=== PATIENT | male | born 1970 | race Two or more races ===

== ENCOUNTER 2024-08-02 09:14 | Outpatient (AMB) | payer MEDICAID, SELFPAY ==
[2024-08-02 09:58] VITALS: BP 151/89; PULSE 64; RESP 17; TEMP 36.4; O2SAT 96; BMI 31.0
--- NOTE | 2024-08-02 09:58 | PD.ORTHCLVIS ---
Vital signs 08/02/24 09:58 Height 1.7 m Height Method Stated Weight 89.84 kg Weight Measurement Method Standing Scale BMI 31.0 BP 151/89 H Blood Pressure Source Automatic Cuff Blood Pressure Location Left Upper Arm Position Sitting Respiration 17 Pulse 64 Pulse Source Monitor Temp 97.6 F Temp Source Temporal Artery Scan Pulse Oximetry (%) 96 Oxygen Delivery Method Room Air Med/Allergies Allergies & Medications Allergies No Known Drug Allergies Allergy (Verified 08/02/24 10:02) Medication Reconciliation omeprazole 10 mg capsule,delayed release 10 mg PO QDAY 08/02/24 [History Confirmed 08/02/24] Subjective Visit Visit for: new patient and knee Immunization / Flu Flu Vaccine in the Last 12 Months: No Flu Vaccine Exclusion Criteria: No Exclusion Criteria History of Present Illness Chief complaint: BILATERAL KNEE PAIN FOR 20 YEARS Date of injury / onset of symptoms: 20 YEARS Patient is a 53-year-old male with bilateral knee pain and bilateral knee arthritis. The left is worse than the right. He reports that his knee has been curving inward. The pains been ongoing for over 10 years. He is tried multiple injections, anti-inflammatories, and formal physical therapy. He reports that the pain was too bad with therapy and he had to stop it soon after. 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 Exam Exam Patient is in no acute distress and is cooperative with the examination today. Breathing is nonlabored. In no respiratory distress. Bilateral extremities were evaluated and demonstrates sensation intact to light touch. Palpable pedal pulses are present. No significant edema is present. Bilateral hips were examined. The patient has no pain with log roll of the hips. Internal rotation to 30 degrees and external rotation to 30 degrees is painless. Negative FADIR. The left knee was examined. The left knee is in [varus] alignment. Range of motion from [0-115] degrees. Knee is stable to varus and valgus as well as AP translation with <5mm. Patient has a [negative] McMurrays. There is [no] pain with patellofemoral compression and [no] crepitus noted. The knee is [tender] to palpation [medially]. The right knee was also examined. The right knee is in [varus] alignment. Range of motion from [0-120] degrees. Knee is stable to varus and valgus as well as AP translation with <5mm. Patient has a [negative] McMurrays. There is [no] pain with patellofemoral compression and [no] crepitus noted. The knee is [tender] to palpation [medially]. Nonweightbearing x-rays demonstrates medial and lateral joint space narrowing and osteophytes. These are nonweightbearing films Assessment and Plan Problem List (1) Degenerative arthritis of knee, bilateral: Status: Acute Plan: Patient is a 53-year-old male with bilateral knee pain and bilateral knee arthritis. He is failed conservative treatment. We will get new x-rays. His last films were nonweightbearing he would benefit from weightbearing films. He has significant varus deformity on exam and I think that he will likely have [id number] arthritis. We discussed different treatment options depending on the severity of the arthritis on x-ray Office Procedures GNS Level of Care Nursing/Assessment Patient Status: Established Patient Nursing Assessment/Reassesment: Medication Reconciliation, Update PMH in EMR and Vital Signs Coordination of Care: Complex Care and Chronic Disease 1-5, Education Complex Pt/Fam, Consent,records obtained, informed consent, 1 Ins Authorization, Lab and Imaging orders, Results/Orders obtained and Staff clarify orders Special Needs: Language special needs Established Patient Charge Established Patient Point Assignment: 125 Established Patient Point Charge: EP Level 4 (120-155) Past Medical History Past Medical History Have you ever been diagnosed with any of the following: Respiratory Problems Smoking: No Smoking Exposure: No
== END 2024-08-02 10:15 | disposition home or self-care (01) ==
LOC: HODSRG 09:14
PROVIDERS: PCP Physician Assistant; Referring Provider Physician Assistant; Supervising Provider Orthopaedic Surgery Adult Reconstructive Orthopaedic Surgery; Visit Provider Orthopaedic Surgery Adult Reconstructive Orthopaedic Surgery
DX: M17.0 Bilateral primary osteoarthritis of knee (principal); M25.562 Pain in left knee; M25.561 Pain in right knee
CPT/HCPCS: 99214; G0463

== ENCOUNTER 2024-10-18 09:03 | Outpatient (AMB) | payer MEDICAID, SELFPAY ==
[2024-10-18 09:20] VITALS: BP 162/85; PULSE 71; RESP 19; TEMP 36.6; O2SAT 95; BMI 31.2
--- NOTE | 2024-10-18 09:20 | PD.ORTHCLVIS ---
Vital signs 10/18/24 09:20 Height 1.7 m Height Method Stated Weight 90.322 kg Weight Measurement Method Standing Scale BMI 31.2 BP 162/85 H Blood Pressure Source Automatic Cuff Blood Pressure Location Right Upper Arm Position Sitting Respiration 19 Pulse 71 Pulse Source Monitor Temp 97.8 F Temp Source Temporal Artery Scan Pulse Oximetry (%) 95 Oxygen Delivery Method Room Air Med/Allergies Allergies & Medications Allergies No Known Drug Allergies Allergy (Verified 10/18/24 09:21) Medication Reconciliation omeprazole 10 mg capsule,delayed release 10 mg PO QDAY 08/02/24 [History Confirmed 10/18/24] Exam Exam Patient is in no acute distress and is cooperative with the examination today. Breathing is nonlabored. In no respiratory distress. Bilateral extremities were evaluated and demonstrates sensation intact to light touch. Palpable pedal pulses are present. No significant edema is present. Bilateral hips were examined. The patient has no pain with log roll of the hips. Internal rotation to 30 degrees and external rotation to 30 degrees is painless. Negative FADIR. The left knee was examined. The left knee is in [varus] alignment. Range of motion from [0-115] degrees. Knee is stable to varus and valgus as well as AP translation with <5mm. Patient has a [negative] McMurrays. There is [no] pain with patellofemoral compression and [no] crepitus noted. The knee is [tender] to palpation [medially]. The right knee was also examined. The right knee is in [varus] alignment. Range of motion from [0-120] degrees. Knee is stable to varus and valgus as well as AP translation with <5mm. Patient has a [negative] McMurrays. There is [no] pain with patellofemoral compression and [no] crepitus noted. The knee is [tender] to palpation [medially]. weightbearing x-rays demonstrates medial and lateral joint space narrowing and osteophytes. Assessment and Plan Problem List (1) Degenerative arthritis of knee, bilateral: Status: Acute Plan: Patient is a 53-year-old male with bilateral knee pain and bilateral knee arthritis. He is failed conservative treatment. We will get new x-rays. His last films were nonweightbearing he would benefit from weightbearing films. He has significant varus deformity on exam and I think that he will likely have [id number] arthritis. We discussed different treatment options. He would like to try a repeat cortisone injection today. Recommend knee cortisone injections as patient would like to proceed with conservative treatment at this time. The risks and benefits of the procedure were reviewed with the patient and patient gave verbal consent to continue with the procedure. Procedure: performed by Dr. Murillo Using sterile technique the Bilateral knees were thoroughly prepped with alcohol, and approximately 1 cc of Kenalog 40 mg/mL and 4 cc of 1% lidocaine was injected into each knee without resistance into the medial tibial femoral joint space. The patient tolerated the procedure. Office Procedures GNS Level of Care Nursing/Assessment Patient Status: Established Patient Nursing Assessment/Reassesment: Medication Reconciliation, Update PMH in EMR and Vital Signs Coordination of Care: Complex Care and Chronic Disease 1-5, Education Complex Pt/Fam, Consent,records obtained, informed consent, Results/Orders obtained and Staff clarify orders Special Needs: Language special needs Established Patient Charge Established Patient Point Assignment: 95 Established Patient Point Charge: EP Level 3 (80-115) Surgical Proc/IM SQ injection Major Surgical Procedure: Yes (RIGHT KNEE INJECTION) Medication Given Medication Given Medication Given: Yes Documented Dose Given: 4 Route: Infiitration Medication Given Medication Given Medication Given: Yes Documented Dose Given: 1 Route: Infiitration Office Meds Xylocaine 10 mg/mL (1 %) injection solution Performing Provider: Douglas Murillo MD Performing Location: [facility] Administered by: Douglas Murillo MD on 10/18/24 10:00 Dose Route Admin Location Dispensed Lot Number Expiration Date [facility] Relay Shop Tester 40 mL Infiltration 40 mL [id number] 01/12/28 27257-110-91 [facility] triamcinolone acetonide 40 mg/mL suspension for injection Performing Provider: Douglas Murillo MD Performing Location: [facility] Administered by: Pratibha Montaño on 10/18/24 10:00 Dose Route Admin Location Dispensed Lot Number Expiration Date [facility] Rel[employer] Tester 80 mg Infiltration 2 mL [id number] 02/10/26 4269-8864-35 TEVA PARENTERAL [place] Intake Visit Data Collection New Patient or Established: Established Patient (seen at [facility] within 3 years) Reason for Visit:: F/U XRAYS Seen by Clinical Staff ONLY (RN/MA): No Verbal consent obtained for Telemed visit?: No Travel Attendants Required: Yes PCP or OBGYN visit in last 3 months: Yes Hx Now: No Do You Feel Safe at Home: Yes Authorities Contacted: N/A Questionairres Past Medical History Past Medical History Have you ever been diagnosed with any of the following: Respiratory Problems Smoking: No Smoking Exposure: No Subjective Visit Visit for: follow up visit, knee and x-rays Immunization / Flu Flu Vaccine in the Last 12 Months: Yes Flu Vaccine Exclusion Criteria: Already Received History of Present Illness Chief complaint: F/U XRAYS Patient is a 53-year-old male with bilateral knee pain and bilateral knee arthritis. The left is worse than the right. He reports that his knee has been curving inward. The pains been ongoing for over 10 years. He is tried multiple injections, anti-inflammatories, and formal physical therapy. He reports that the pain was too bad with therapy and he had to stop it soon after. He reports that the pain is affecting his quality life and happiness Pain Pain level (0-10): 7 Pain duration: ALL DAY Pain location: inside (medial), outside (lateral) and anterior Pain quality: sharp and dull Pain timing: increases with activity and stairs Associated signs & symptoms: none Ambulatory data Ambulatory device: none Treatments Improvement with previous injections: No Improvement with PT: No Improvement with NSAIDS: n/a Review of Systems Review of Systems: All systems negative unless otherwise noted in HPI.
== END 2024-10-18 09:49 | disposition home or self-care (01) ==
PROVIDERS: Supervising Provider Orthopaedic Surgery Adult Reconstructive Orthopaedic Surgery; Visit Provider Orthopaedic Surgery Adult Reconstructive Orthopaedic Surgery
DX: M17.0 Bilateral primary osteoarthritis of knee (principal); M25.562 Pain in left knee; M25.561 Pain in right knee; M21.10 Varus deformity, not elsewhere classified, unspecified site
CPT/HCPCS: 20610; 99213; J3301; J3490; G0463

== ENCOUNTER 2025-01-27 09:14 | Outpatient (AMB) | payer MEDICAID, SELFPAY ==
[2025-01-27 09:57] VITALS: BP 168/96; PULSE 73; RESP 18; TEMP 36.7; O2SAT 96; BMI 29.7
--- NOTE | 2025-01-27 09:57 | PD.ORTHCLVIS ---
Vital signs 01/27/25 09:57 Height 1.7 m Height Method Stated Weight 85.842 kg Weight Measurement Method Standing Scale BMI 29.7 BP 168/96 H Blood Pressure Source Automatic Cuff Blood Pressure Location Right Upper Arm Position Sitting Respiration 18 Pulse 73 Pulse Source Monitor Temp 98.0 F Temp Source Temporal Artery Scan Pulse Oximetry (%) 96 Oxygen Delivery Method Room Air Med/Allergies Allergies & Medications Allergies No Known Drug Allergies Allergy (Verified 01/27/25 09:58) Medication Reconciliation omeprazole 10 mg capsule,delayed release 10 mg PO QDAY 08/02/24 [History Confirmed 01/27/25] Exam Exam Patient is in no acute distress and is cooperative with the examination today. Breathing is nonlabored. In no respiratory distress. Bilateral extremities were evaluated and demonstrates sensation intact to light touch. Palpable pedal pulses are present. No significant edema is present. Bilateral hips were examined. The patient has no pain with log roll of the hips. Internal rotation to 30 degrees and external rotation to 30 degrees is painless. Negative FADIR. The left knee was examined. The left knee is in [varus] alignment. Range of motion from [0-115] degrees. Knee is stable to varus and valgus as well as AP translation with <5mm. Patient has a [negative] McMurrays. There is [no] pain with patellofemoral compression and [no] crepitus noted. The knee is [tender] to palpation [medially]. The right knee was also examined. The right knee is in [varus] alignment. Range of motion from [0-120] degrees. Knee is stable to varus and valgus as well as AP translation with <5mm. Patient has a [negative] McMurrays. There is [no] pain with patellofemoral compression and [no] crepitus noted. The knee is [tender] to palpation [medially]. weightbearing x-rays demonstrates medial and lateral joint space narrowing and osteophytes. Assessment and Plan Problem List (1) Degenerative arthritis of knee, bilateral: Status: Acute Plan: Patient is a 53-year-old male with bilateral knee pain and bilateral knee arthritis. He is failed conservative treatment. We will get new x-rays. His last films were nonweightbearing he would benefit from weightbearing films. He has significant varus deformity on exam and I think that he will likely have [id number] arthritis. We discussed different treatment options. He would like to try a repeat cortisone injection today. Recommend knee cortisone injections as patient would like to proceed with conservative treatment at this time. The risks and benefits of the procedure were reviewed with the patient and patient gave verbal consent to continue with the procedure. Procedure: performed by Dr. Murillo Using sterile technique the Bilateral knees were thoroughly prepped with alcohol, and approximately 1 cc of Kenalog 40 mg/mL and 4 cc of 1% lidocaine was injected into each knee without resistance into the medial tibial femoral joint space. The patient tolerated the procedure. Office Procedures GNS Level of Care Nursing/Assessment Patient Status: Established Patient Nursing Assessment/Reassesment: Medication Reconciliation, Update PMH in EMR and Vital Signs Coordination of Care: Complex Care and Chronic Disease 1-5, Education Complex Pt/Fam, Consent,records obtained, informed consent, Results/Orders obtained and Staff clarify orders Special Needs: Language special needs Established Patient Charge Established Patient Point Assignment: 95 Surgical Proc/IM SQ injection Major Surgical Procedure: Yes (KNEE INJECTION ) Medication Given Medication Given Medication Given: Yes Documented Dose Given: 8 Route: Infiitration Medication Given Medication Given Medication Given: Yes Documented Dose Given: 2 Route: Infiitration Office Meds Xylocaine 10 mg/mL (1 %) injection solution Performing Provider: Douglas Murillo MD Performing Location: [facility] Administered by: Douglas Murillo MD on 01/27/25 10:38 Dose Route Admin Location Dispensed Lot Number Expiration Date [facility] Liquefaction Plant Operator 40 mL Infiltration KNEE 40 mL [id number] 04/14/28 64895-191-46 [facility] triamcinolone acetonide 40 mg/mL suspension for injection Performing Provider: Douglsa Murillo MD Performing Location: [facility] Administered by: Douglas Murillo MD on 01/27/25 10:38 Dose Route Admin Location Dispensed Lot Number Expiration Date [facility] [employer] Operator 80 mg intra-articular KNEE 2 mL [id number] 06/14/26 5973-4607-38 JEREMIAH PARENTERAL [place] Intake Visit Data Collection New Patient or Established: Established Patient (seen at [facility] within 3 years) Reason for Visit:: REQ BILATERAL KNEE INJECTIONS Seen by Clinical Staff ONLY (RN/MA): No Verbal consent obtained for Telemed visit?: No Churn Driller Required: Yes PCP or OBGYN visit in last 3 months: Yes Hx Now: No Do You Feel Safe at Home: Yes Authorities Contacted: N/A Questionairres Past Medical History Past Medical History Have you ever been diagnosed with any of the following: Respiratory Problems Smoking: No Smoking Exposure: No Subjective Visit Visit for: follow up visit, knee and injections Immunization / Flu Flu Vaccine in the Last 12 Months: No Flu Vaccine Exclusion Criteria: No Exclusion Criteria History of Present Illness Chief complaint: REQ BILATERAL KNEE INJECTIONS Patient is a 53-year-old male with bilateral knee pain and bilateral knee arthritis. The left is worse than the right. He reports that his knee has been curving inward. The pains been ongoing for over 10 years. He is tried multiple injections, anti-inflammatories, and formal physical therapy. He reports that the pain was too bad with therapy and he had to stop it soon after. He reports that the pain is affecting his quality life and happiness. He has tried physical therapy in the past and would like to consider doing a knee replacement on the left side soon. He would like bilateral knee injections today. Personal History Red flag PMH: BMI BMI Counceling provided: Yes Pain Pain level (0-10): 8 Pain duration: CONSTANT Pain location: anterior and posterior Pain quality: sharp, dull and aching Pain timing: night, increases with activity and stairs Associated signs & symptoms: weakness and stiffness Ambulatory data Ambulatory device: none Treatments Number of previous injections: 1 Improvement with previous injections: Yes Improvement with PT: No Improvement with NSAIDS: n/a Review of Systems Review of Systems: All systems negative unless otherwise noted in HPI.
== END 2025-01-27 10:25 | disposition home or self-care (01) ==
LOC: HODSRG 09:14
PROVIDERS: Supervising Provider Orthopaedic Surgery Adult Reconstructive Orthopaedic Surgery; Visit Provider Orthopaedic Surgery Adult Reconstructive Orthopaedic Surgery
DX: M17.0 Bilateral primary osteoarthritis of knee (principal); M25.562 Pain in left knee; M25.561 Pain in right knee; M21.162 Varus deformity, not elsewhere classified, left knee; M21.161 Varus deformity, not elsewhere classified, right knee
CPT/HCPCS: 20610; 99213; J3301; J3490; G0463

== ENCOUNTER 2025-05-02 09:24 | Outpatient (AMB) | payer MEDICAID, SELFPAY ==
[2025-05-02 09:46] VITALS: BP 160/91; PULSE 70; RESP 18; TEMP 36.5; O2SAT 98; BMI 28.6
--- NOTE | 2025-05-02 09:46 | PD.ORTHCLVIS ---
Vital signs 05/02/25 09:46 Height 1.7 m Height Method Stated Weight 82.724 kg Weight Measurement Method Standing Scale BMI 28.6 BP 160/91 H Blood Pressure Source Automatic Cuff Blood Pressure Location Left Upper Arm Position Sitting Respiration 18 Pulse 70 Pulse Source Monitor Temp 97.7 F Temp Source Temporal Artery Scan Pulse Oximetry (%) 98 Oxygen Delivery Method Room Air Med/Allergies Allergies & Medications Allergies No Known Drug Allergies Allergy (Verified 05/02/25 09:47) Medication Reconciliation omeprazole 10 mg capsule,delayed release 10 mg PO QDAY 08/02/24 [History Confirmed 05/02/25] Exam Exam Patient is in no acute distress and is cooperative with the examination today. Breathing is nonlabored. In no respiratory distress. Bilateral extremities were evaluated and demonstrates sensation intact to light touch. Palpable pedal pulses are present. No significant edema is present. Bilateral hips were examined. The patient has no pain with log roll of the hips. Internal rotation to 30 degrees and external rotation to 30 degrees is painless. Negative FADIR. The left knee was examined. The left knee is in [varus] alignment. Range of motion from [0-115] degrees. Knee is stable to varus and valgus as well as AP translation with <5mm. Patient has a [negative] McMurrays. There is [no] pain with patellofemoral compression and [no] crepitus noted. The knee is [tender] to palpation [medially]. The right knee was also examined. The right knee is in [varus] alignment. Range of motion from [0-120] degrees. Knee is stable to varus and valgus as well as AP translation with <5mm. Patient has a [negative] McMurrays. There is [no] pain with patellofemoral compression and [no] crepitus noted. The knee is [tender] to palpation [medially]. weightbearing x-rays demonstrates medial and lateral joint space narrowing and osteophytes of both knees Assessment and Plan Problem List (1) Degenerative arthritis of knee, bilateral: Status: Acute Plan: Patient is a 53-year-old male with bilateral knee pain and bilateral knee arthritis. He is failed conservative treatment. He has significant varus deformity on exam and complete joint space narrowing medially of both compartments. We discussed different treatment options. Given his failed conservative treatment. We discussed total knee replacement is a reasonable option. The nature and purpose of the total knee replacement, alternative method(s) of treatment, the material risks involved, and the possibility of complications were fully explained to the patient. The patient does NOT have any of the following contraindications to TKA: - Active infection of the knee joint, OR - Active systemic bacteremia, OR - Active skin infection or open wound at surgical site, OR - Neuropathic arthritis, OR - Severe, rapidly progressive neurological disease, OR - Severe medical condition that makes risks of surgery outweigh the potential benefit The patient was told the most common risks and complications associated with a total knee replacement include, but are not limited to: blood clots in the leg, fatal pulmonary embolism, dislocation of the prosthesis, intraoperative and postoperative fractures of the femur or tibia, infection, failure of the prosthesis or grafting materials, complications from anesthesia, reactions to blood transfusions, postoperative leg length inequality, instability of the knee replacement, nerve damage or injury, vascular injury, delayed wound healing, infection, other injury or even . In addition, there are risks associated with anesthesia given during this operation. Also, the patient was told that after undergoing a total knee replacement there may still be persistent pain or disability. The patient was informed that the success of this operation in part depends upon the mechanical devices which are going to be implanted and that these devices can fail or malfunction, and may need to be repaired or replaced and there are no guarantees as to the longevity of this device or its parts and that it or its parts could fail prematurely. The patient was also notified that during the course of surgery, there may be a need to use bone graft from donors, and that any bone graft used will be carefully screened for communicable diseases, including AIDS, hepatitis, Brian-Creutzfeldt, or other diseases, but despite the screening procedures, there is a small chance that they could contract one of these diseases. Finally, the patient was asked to follow completely and fully with all advice and recommended treatments, and that recovery and ultimate outcome are affected by their compliance with recommended treatment. We discussed the risks, benefits and treatment alternatives, and the patient is interested in proceeding with surgery. We will try to set this up as expeditiously as possible. Office Procedures GNS Level of Care Nursing/Assessment Patient Status: Established Patient Nursing Assessment/Reassesment: Medication Reconciliation, Update PMH in EMR and Vital Signs Coordination of Care: Complex Care and Chronic Disease 1-5, Education Complex Pt/Fam, Consent,records obtained, informed consent, Results/Orders obtained and Staff clarify orders Special Needs: Language special needs Established Patient Charge Established Patient Point Assignment: 95 Established Patient Point Charge: EP Level 3 (80-115) MA Intake Visit Data Collection New Patient or Established: Established Patient (seen at [facility] within 3 years) Reason for Visit:: REQ SX LEFT KNEE Seen by Clinical Staff ONLY (RN/MA): No Verbal consent obtained for Telemed visit?: No Reimbursement Manager Required: Yes PCP or OBGYN visit in last 3 months: Yes Hx Now: No Do You Feel Safe at Home: Yes Authorities Contacted: N/A Questionairres Past Medical History Past Medical History Have you ever been diagnosed with any of the following: Respiratory Problems Smoking: No Smoking Exposure: No Subjective Visit Visit for: follow up visit and knee Immunization / Flu Flu Vaccine in the Last 12 Months: No Flu Vaccine Exclusion Criteria: No Exclusion Criteria History of Present Illness Chief complaint: FOLLOW UP INJ/REQ LEFT KNEE SX Patient is a 53-year-old male with bilateral knee pain and bilateral knee arthritis. The left is worse than the right. He reports that his knee has been curving inward. The pains been ongoing for over 10 years. He is tried multiple injections, anti-inflammatories, and formal physical therapy. He reports that the pain was too bad with therapy and he had to stop it soon after. He reports that the pain is affecting his quality life and happiness. He has tried physical therapy in the past and would like a knee replacement as he is not durable relief with the knee injections. The patient is using a cane to ambulate Personal History Red flag PMH: BMI BMI Counceling provided: Yes Pain Pain level (0-10): 8 Pain duration: CONSTANT Pain location: anterior and posterior Pain quality: sharp, dull and aching Pain timing: night, increases with activity and stairs Associated signs & symptoms: weakness and stiffness Ambulatory data Ambulatory device: none Treatments Number of previous injections: 4 Improvement with previous injections: No Improvement with PT: No Improvement with NSAIDS: n/a Review of Systems Review of Systems: All systems negative unless otherwise noted in HPI.
== END 2025-05-02 10:08 | disposition home or self-care (01) ==
PROVIDERS: Supervising Provider Orthopaedic Surgery Adult Reconstructive Orthopaedic Surgery; Visit Provider Orthopaedic Surgery Adult Reconstructive Orthopaedic Surgery
DX: M17.0 Bilateral primary osteoarthritis of knee (principal); M25.562 Pain in left knee; M25.561 Pain in right knee
CPT/HCPCS: 99213; G0463

== ENCOUNTER → 2025-07-07 | Outpatient (CLI) | payer MEDICAID, SELFPAY ==
--- NOTE | 2025-07-07 13:30 | XR_ITS ---
Examination: CT left lower extremity, without contrast. 2-D sagittal reconstructions. 2-D coronal reconstructions. 3-D reconstructions. Date and time of exam: July 07, 2025, 1350 hours INDICATIONS: Diagnosis primary unilateral osteoarthritis left knee, left knee pain 5 years CTDI: vol (mGy): 9.69 DLP: (mGycm): 760 Technique: Multiple 1.25 mm axial sections of the left lower extremity without intravenous contrast have been obtained. 2-D sagittal and coronal reconstructions have been obtained. 3-D reconstructions have been obtained. Low dose protocols were performed. One or more of the following dose reduction techniques were used; automated exposure control, adjustment of the mA and/or KV according to patient size, use of iterative reconstruction technique. Findings: Mild osteopenia Moderate narrowing left hip joint No left hip fracture or dislocation Advanced left knee tricompartment osteoarthritis including severe narrowing medial joint space No fracture No avascular necrosis IMPRESSION: Advanced left knee tricompartment osteoarthritis including severe narrowing medial joint space
== END | disposition home or self-care (01) ==
LOC: CCTX 12:35
PROVIDERS: PCP Physician Assistant; Referring Provider Orthopaedic Surgery Adult Reconstructive Orthopaedic Surgery; Visit Provider Orthopaedic Surgery Adult Reconstructive Orthopaedic Surgery
DX: M17.12 Unilateral primary osteoarthritis, left knee (principal); M25.862 Other specified joint disorders, left knee
CPT/HCPCS: 73700

== ENCOUNTER 2025-07-11 07:54 | Outpatient (AMB) | payer MEDICAID, SELFPAY ==
[2025-07-11 08:16] VITALS: BP 164/85; PULSE 63; RESP 18; TEMP 36.4; O2SAT 96; BMI 28.8
--- NOTE | 2025-07-11 08:16 | ORTHONT_ITS ---
Vital signs 07/11/25 08:16 Height 1.7 m Height Method Measured Weight 83.178 kg Weight Measurement Method Standing Scale BMI 28.8 BP 164/85 H Blood Pressure Source Automatic Cuff Blood Pressure Location Left Upper Arm Position Sitting Respiration 18 Pulse 63 Pulse Source Monitor Temp 97.5 F Temp Source Temporal Artery Scan Pulse Oximetry (%) 96 Oxygen Delivery Method Room Air Med/Allergies Allergies & Medications Allergies No Known Drug Allergies Allergy (Verified 07/11/25 08:18) Medication Reconciliation omeprazole 10 mg capsule,delayed release 10 mg PO QDAY 08/02/24 [History Con firmed 07/11/25] Exam Exam Patient is in no acute distress and is cooperative with the examination today. Breathing is nonlabored. In no respiratory distress. Bilateral extremities were evaluated and demonstrates sensation intact to light touch. Palpable pedal pulses are present. No significant edema is present. Bilateral hips were examined. The patient has no pain with log roll of the hips. Internal rotation to 30 degrees and external rotation to 30 degrees is painless. Negative FADIR. The left knee was examined. The left knee is in [varus] alignment. Range of motion from [0-115] degrees. Knee is stable to varus and valgus as well as AP translation with <5mm. Patient has a [negative] McMurrays. There is [no] pain with patellofemoral compression and [no] crepitus noted. The knee is [tender] to palpation [medially]. The right knee was also examined. The right knee is in [varus] alignment. Range of motion from [0-120] degrees. Knee is stable to varus and valgus as well as AP translation with <5mm. Patient has a [negative] McMurrays. There is [no] pain with patellofemoral compression and [no] crepitus noted. The knee is [tender] to palpation [medially]. weightbearing x-rays demonstrates medial and lateral joint space narrowing and osteophytes of both knees Assessment and Plan Problem List (1) Degenerative arthritis of knee, bilateral: Status: Acute Plan: Patient is a 54-year-old male with bilateral knee pain and bilateral knee arthritis. He is failed conservative treatment. He has significant varus deformity on exam and complete joint space narrowing medially of both compartments. We discussed different treatment options. Given his failed conservative treatment. We discussed total knee replacement is a reasonable option. The nature and purpose of the total knee replacement, alternative method(s) of treatment, the material risks involved, and the possibility of complications were fully explained to the patient. The patient does NOT have any of the following contraindications to TKA: - Active infection of the knee joint, OR - Active systemic bacteremia, OR - Active skin infection or open wound at surgical site, OR - Neuropathic arthritis, OR - Severe, rapidly progressive neurological disease, OR - Severe medical condition that makes risks of surgery outweigh the potential benefit The patient was told the most common risks and complications associated with a total knee replacement include, but are not limited to: blood clots in the leg, fatal pulmonary embolism, dislocation of the prosthesis, intraoperative and postoperative fractures of the femur or tibia, infection, failure of the prosthesis or grafting materials, complications from anesthesia, reactions to blood transfusions, postoperative leg length inequality, instability of the knee replacement, nerve damage or injury, vascular injury, delayed wound healing, infection, other injury or even . In addition, there are risks associated with anesthesia given during this operation. Also, the patient was told that after undergoing a total knee replacement there may still be persistent pain or disability. The patient was informed that the success of this operation in part depends upon the mechanical devices which are going to be implanted and that these devices can fail or malfunction, and may need to be repaired or replaced and there are no guarantees as to the longevity of this device or its parts and that it or its parts could fail prematurely. The patient was also notified that during the course of surgery, there may be a need to use bone graft from donors, and that any bone graft used will be carefully screened for communicable diseases, including AIDS, hepatitis, Brian-Creutzfeldt, or other diseases, but despite the screening procedures, there is a small chance that they could contract one of these diseases. Finally, the patient was asked to follow completely and fully with all advice and recommended treatments, and that recovery and ultimate outcome are affected by their compliance with recommended treatment. We discussed the risks, benefits and treatment alternatives, and the patient is interested in proceeding with surgery. We will try to set this up as expeditiously as possible. Office Procedures GNS Level of Care Nursing/Assessment Patient Status: Established Patient Nursing Assessment/Reassesment: Medication Reconciliation, Update PMH in EMR and Vital Signs Coordination of Care: Complex Care and Chronic Disease 1-5, Education Complex Pt/Fam, Consent,records obtained, informed consent, Results/Orders obtained and Staff clarify orders Special Needs: Language special needs Established Patient Charge Established Patient Point Assignment: 95 Established Patient Point Charge: EP Level 3 (80-115) MA Intake Visit Data Collection New Patient or Established: Established Patient (seen at [facility] within 3 years) Reason for Visit:: PRE OP LEFT TKA Seen by Clinical Staff ONLY (RN/MA): No Verbal consent obtained for Telemed visit?: No Manufacturing Engineering Intern Required: Yes PCP or OBGYN visit in last 3 months: Yes Hx Now: No Do You Feel Safe at Home: Yes Authorities Contacted: N/A Questionairres Past Medical History Past Medical History Have you ever been diagnosed with any of the following: Respiratory Problems Smoking: No Smoking Cessation Counseling: No Smoking Exposure: No Subjective Visit Visit for: follow up visit and knee Immunization / Flu Flu Vaccine in the Last 12 Months: No Flu Vaccine Exclusion Criteria: No Exclusion Criteria History of Present Illness Chief complaint: PRE OP LEFT TKA Date of 1st surgery (if applicable): 07/28/2025 Patient is a 53-year-old male with bilateral knee pain and bilateral knee arthritis. The left is worse than the right. He reports that his knee has been curving inward. The pains been ongoing for over 10 years. He is tried multiple injections, anti-inflammatories, and formal physical therapy. He reports that the pain was too bad with therapy and he had to stop it soon after. He reports that the pain is affecting his quality life and happiness. He has tried physical therapy in the past and would like a knee replacement as he is not durable relief with the knee injections. The patient is using a cane to ambulate Personal History Red flag PMH: BMI BMI Counceling provided: Yes Additional comments: WALKER WAS GIVEN TO PATIENT Pain Pain level (0-10): 8 Pain duration: CONSTANT Pain location: anterior and posterior Pain quality: sharp, dull and aching Pain timing: night, increases with activity and stairs Associated signs & symptoms: weakness and stiffness Ambulatory data Ambulatory device: none Treatments Number of previous injections: 4 Improvement with previous injections: No Improvement with PT: No Improvement with NSAIDS: n/a Review of Systems Review of Systems: All systems negative unless otherwise noted in HPI.
== END 2025-07-11 08:48 | disposition home or self-care (01) ==
LOC: HODSRG 07:54
PROVIDERS: PCP Physician Assistant; Referring Provider Physician Assistant; Supervising Provider Orthopaedic Surgery Adult Reconstructive Orthopaedic Surgery; Visit Provider Orthopaedic Surgery Adult Reconstructive Orthopaedic Surgery
DX: M25.562 Pain in left knee (principal); M25.561 Pain in right knee; M17.0 Bilateral primary osteoarthritis of knee
CPT/HCPCS: 99213; G0463

== ENCOUNTER 2025-07-28 05:35 | Day surgery (SDC) | payer MEDICAID, SELFPAY ==
[2025-07-26 13:35] VITALS: BMI 31.2
[2025-07-26 14:59] LABS: Basophils # (Auto) 0.0 Thou/mm3 (0.0-0.2); Basophils % (Auto) 0 % (0-2.5); Eosinophils # (Auto) 0.3 Thou/mm3 (0.0-0.5); Eosinophils % (Auto) 4 % (0-10); Hematocrit 42.9 % (41.0-53.0); Hemoglobin 15.1 g/dL (13.5-16.0); Immature Granulocytes Auto 0.03 Thou/mm3 (0.00-0.00); Lymphocytes # (Auto) 2.1 Thou/mm3 (1.0-4.8); Lymphocytes % (Auto) 30 % (10-50); Mean Corpuscular HGB Conc 35.2 g/dl (31.0-37.0); Mean Corpuscular Hemoglobin 32.1 pg (25.0-35.0); Mean Corpuscular Volume 91 fL (80-100); Monocytes # (Auto) 0.8 Thou/mm3 (0.0-0.8); Monocytes % (Auto) 11 % (0-12); Neutrophils # (Auto) 3.9 Thou/mm3 (1.8-7.7); Neutrophils % (Auto) 55 % (37-80); Nucleated Red Blood Cell # 0.00 Thou/mm3 (0.00-0.00); Nucleated Red Blood Cell % 0 /100 WBC (0); Platelet Count 232 Thou/mm3 (140-440); RDW Standard Deviation 41.3 fL (35.1-43.9); Red Blood Count 4.70 Miln/mm3 (4.50-5.90); White Blood Count 7.1 Thou/mm3 (3.8-10.6)
[2025-07-26 15:06] LABS: Anion Gap 10 (7-16); BUN/Creatinine Ratio 23 Ratio (12-20); Blood Urea Nitrogen 16 mg/dL (9-23); Calcium 9.6 mg/dL (8.3-10.6); Carbon Dioxide 23.9 mMol/L (20.0-31.0); Chloride 107 mMol/L (98-107); Creatinine (Component) 0.7 mg/dL (0.6-1.3); Estimated Creatinine Clearance 118.3 mL/min (>60); Glucose 100 mg/dL (74-106); INR 1.0 (0.9-1.3); Osmolality,Calculated 282 (275-295); Partial Thromboplastin Time 29.1 Seconds (22.0-36.0); Potassium 3.6 mMol/L (3.4-5.1); Prothrombin Time 10.9 Seconds (9.0-12.2); Sodium 141 mMol/L (136-145); eGFR > 60 See Note
[2025-07-28] VITALS (14 sets, daily range): BP systolic 130–164; BP diastolic 73–97; PULSE 63–92; RESP 12–20; TEMP 36.2–36.7; O2SAT 95–98; BMI 31.0
[2025-07-28] MEDS: MELOXICAM 7.5 MG TABLET PO (06:36)
[2025-07-28] MEDS: PREGABALIN 75 MG CAPSULE PO (06:36)
[2025-07-28] MEDS: ACETAMINOPHEN 325 MG TABLET 650 MG PO (06:36)
[2025-07-28] MEDS: RINGERS LACTATED 1000 ML 1,000 ML 20 ML IV (06:37)
--- NOTE | 2025-07-28 07:29 | SUR.PREOP ---
Patient expressed gratitude for prayer before their procedure.
--- NOTE | 2025-07-28 09:10 | ESOP_ITS ---
Date of Procedure 07/28/25 Pre Op Diagnosis left knee osteoathritis Post Op Diagnosis left knee osteoathritis Procedure left total knee replacement ajay Findings full thickness cartilage loss and osteophytes Procedure Description Indication: The patient has a long history of left knee pain. X-rays show degenerative arthritis involving the knee. Over the past several years the patient has had increasing pain, progressive limitation in function. He has failed conservative measures including activity modification, physical therapy, injections, anti- inflammatories, and assistive devices. After a lengthy discussion of the risks and benefits, the patient presents now for total knee replacement. The nature and purpose of the total knee replacement, alternative method(s) of treatment, the material risks involved, and the possibility of complications were fully explained to the patient. The patient was told the most common risks and complications associated with a total knee replacement include, but are not limited to blood clots in the leg, fatal pulmonary embolism, dislocation of the prosthesis, intraoperative and postoperative fractures of the femur or tibia, infection, failure of the prosthesis or grafting materials, complications from anesthesia, reactions to blood transfusions, postoperative leg length inequality, instability of the knee replacement, nerve damage or injury, vascular injury, delayed wound healing, infections, other injury or even . In addition, there are risks associated with anesthesia given during this operation, temporary or permanent numbness on the skin lateral to the incision can be a complication unique to total knee surgery, and kneeling can be painful after knee replacement surgery. Also, the patient was told that after undergoing a total knee replacement there may still be pain or disability. We discussed with the patient that we will be using a robot-assisted technology. We discussed that there is a possibility of converting to manual instrumentation. The patient was informed that the success of this operation in part depends upon the mechanical devices which are going to be implanted and that these devices can fail or malfunction, and may need to be repaired or replaced and there are no guarantees as to the longevity of this device or its part and that it or its parts could fail prematurely. Finally, the patient was asked to follow completely and fully with all advice and recommended treatments, and that recovery and ultimate outcome are affected by their compliance with recommended treatment. Surgical technique: Patient was marked and consented in the pre-operative area. The patient was brought to the operating room and placed on the operating table in a supine position. Prior to positioning, a timeout procedure was performed between the surgeon, the anesthesiologist, and the nursing staff where the patient and the operative side were identified and confirmed. After adequate general anesthetic was obtained, the left lower extremity was prepped and draped in the usual sterile fashion. A weight based dose of Cefazolin were administered within 1 hour prior to incision. The robot was preregistered and calibrated before the incision. The extremity was exsanguinated with an esmarch badge and tourniquet inflated to 250mmHg. A midline incision was made. A median parapatellar arthrotomy was made. The patella was subluxed laterally. A medial release was performed to expose the medial tibia. His femoral and tibial pins were placed through an intra incisional manner for both cases. Every effort was made to ensure that the distalmost aspect of the pin was hung in the second cortex. The arrays were then tightened several times to ensure that it was fixed for the remainder of the case. Both femoral and tibial checkpoints were then placed. We then went through the registration process of the bone. We then assessed the knee deformity and attempted to correct it. We also used the robot to aid in judging laxity in both extension and flexion. Final based on laxity and alignment we changed the preoperative assessment to obtain proper proper implant positioning and to correct deformity. Attention was then placed to the tibia. We made a tibial cut using the robot ensuring that both the MCL and the patella tendon were protected with retractors. We then went to the femur and made the posterior cut followed by the anterior cut and the anterior chamfer. The bone was then removed and we made a distal femur cut and a posterior chamfer cut. We verified all cuts. A trial reduction was performed with a size 5 femoral component and a size 5 keeled tibial component. T The patella tracked centrally, and no lateral retinacular release was necessary. The trial implants were removed. The arrays, pins, and checkpoints were all removed. We performed a verification that all pins were removed. The cut bone surfaces were lavaged with saline and surgiphor. A size 5 left femoral component, a size 5 keeled tibial component were impacted into position. The knee was felt to be well balanced in the sagittal and coronal plane. The final 5x11 mm cruciate-substituting articular insert was impacted into the tibial tray. The knee was brought out to full extension, flexed up to 120 degrees. It was stable to varus and valgus stress and appropriately balanced in flexion and extension. The wounds were copiously irrigated following deflation of tourniquet. The medial retinaculum was reapproximated with #1 vicryl and quill. The subcutaneous tissues were closed with 0 and 2-0 interrupted Vicryl. The skin was closed with 3-0 Monofilament V loc suture. A sterile dressing was applied. The patient was transferred to a bed and brought to recovery in stable condition. The patient tolerated the procedure well. There were no intraoperative complications. Sponge and needle counts were correct times 2. As the attending surgeon, I attest I was present and performed the entire operation. Grafts/Implants Size 5 CR Femur Size 5 Tibia 11mm poly CS Anesthesia spinal Implants Implants comments: hawa Pathology / specimen None Pathology comment: none Estimated Blood Loss 150 Condition Stable Disposition same day Surgeon Douglas Murillo MD Surgical Staff Operation Date: 07/28/25 07:30 Case Staff Anesthesiologist: Long Levy RN First Assistant: Sunni Najera
--- NOTE | 2025-07-28 09:12 | XR_ITS ---
EXAMINATION: Left knee 2 views TECHNIQUE: AP lateral left knee 2 views Date and time: July 28, 2025, 0955 hours INDICATIONS: Postop knee replacement FINDINGS: Total left knee arthroplasty. Satisfactory alignment. Moderate osteopenia. No fracture. IMPRESSION: Total left knee arthroplasty with satisfactory alignment
--- NOTE | 2025-07-28 09:28 | SUR.PHASEI ---
pt received from OR in recovery bay 3. pt obtunded breathing unlabored on oxymask 8l, oral airway in place. v/s stable. pt dressing to left lower extremity cdi. report received from Tony DESHPANDE and Jamilah JACK.
[2025-07-28] MEDS: HYDROmorphone INJ 2 MG/ML VIAL 0.4 MG IVP (10:04)
--- NOTE | 2025-07-28 12:19 | SUR.PHASEII ---
pt awake and alert, breathing unlabored on room air. v/s stable. pt dressing to left lower extremity cdi. pt cleared by physical therapist Kristina. pt able to ambulate to [facility] hallway with walker. d/c instructions given with Beth in room, all questions answered. pt d/c via wheelchair with all belongings.
== END 2025-07-28 12:19 | disposition home or self-care (01) ==
PROVIDERS: PCP Physician Assistant; Referring Provider Orthopaedic Surgery Adult Reconstructive Orthopaedic Surgery; Visit Provider Orthopaedic Surgery Adult Reconstructive Orthopaedic Surgery
PROC: (CPT 20985; principal; 2025-07-28 07:30)
DX: M17.12 Unilateral primary osteoarthritis, left knee (principal); M25.762 Osteophyte, left knee
CPT/HCPCS: 20985; 27447; 36415; 73560; 80048; 85025; 85610; 85730; 97162; A4217; A4649; C1713; C1776; J0696; J1100; J1171; J2250; J2371; J2704; J3010; J3490; J7030; J7120; A4648; A9270; J1920; J7999

== ENCOUNTER 2025-08-15 14:35 | Outpatient (AMB) | payer MEDICAID, SELFPAY ==
--- NOTE | 2025-08-15 14:51 | ORTHONT_ITS ---
Vital signs 08/15/25 14:52 Height 1.63 m Height Method Stated Weight 80.031 kg Weight Measurement Method Standing Scale BMI 30.1 BP 143/94 H Blood Pressure Source Automatic Cuff Blood Pressure Location Left Upper Arm Position Sitting Respiration 18 Pulse 81 Pulse Source Monitor Temp 97.3 F Temp Source Temporal Artery Scan Pulse Oximetry (%) 98 Oxygen Delivery Method Room Air Med/Allergies Allergies & Medications Allergies No Known Drug Allergies Allergy (Verified 08/15/25 14:52) Medication Reconciliation multivitamin (Daily Multi-Vitamin tablet) 1 tab PO QAM 07/26/25 [History Conf irmed 08/15/25] aspirin 81 mg tablet,delayed release 81 mg PO BID #60 tabs 07/28/25 [Rx Confirmed 08/15/25] doxycycline hyclate 100 mg tablet 100 mg PO BID #14 tabs 07/28/25 [Rx Confirmed 08/15/25] gabapentin 300 mg capsule 300 mg PO .qhs #30 caps 07/28/25 [Rx Confirmed 08/15/25] oxycodone 5 mg tablet 5 mg PO Q6H PRN pain #28 tabs 07/28/25 [Rx Confirmed 08/15/25] sennosides 8.6 mg-docusate sodium 50 mg tablet (Senna-S) 1 tab-cap PO QDAY #30 tabs 07/28/25 [Rx Confirmed 08/15/25] acetaminophen 500 mg tablet (Acetaminophen Extra Strength) 1,000 mg (2 x 500 mg) PO Q6H PRN pain #90 tabs 08/15/25 [Rx] oxycodone 5 mg tablet 5 mg PO Q6H PRN pain #28 tabs 08/15/25 [Rx] Exam Exam Patient is in no acute distress and is cooperative with the examination today. Breathing is nonlabored. Patient has a normal mood and affect. The patient has a gait that is nonantalgic Bilateral extremities were evaluated and demonstrates sensation intact to light touch. Palpable pedal pulses are present. No significant edema is present. Bilateral hips were examined. The patient has no pain with log roll of the hips. Internal rotation to 30 degrees and external rotation to 30 degrees is painless. Negative FADIR. Left knee incision is clean dry and intact. Knee feels stable varus valgus stress as well as AP translation Assessment and Plan Problem List (1) Degenerative arthritis of knee, bilateral: Status: Acute Plan: Patient is doing well status post total knee replacement We will see the patient back in approximately 4 weeks for routine follow-up Office Procedures GNS Level of Care Nursing/Assessment Patient Status: Established Patient Nursing Assessment/Reassesment: Medication Reconciliation, Update PMH in EMR and Vital Signs Coordination of Care: Complex Care and Chronic Disease 1-5, Education Complex Pt/Fam, Consent,records obtained, informed consent, Results/Orders obtained and Staff clarify orders Special Needs: Language special needs Established Patient Charge Established Patient Point Assignment: 95 Established Patient Point Charge: EP Level 3 (80-115) MA Intake Visit Data Collection New Patient or Established: Established Patient (seen at [facility] within 3 years) Reason for Visit:: 2 WK L TKA Seen by Clinical Staff ONLY (RN/MA): No Verbal consent obtained for Telemed visit?: No Knockout Man Required: Yes PCP or OBGYN visit in last 3 months: Yes Hx Now: No Do You Feel Safe at Home: Yes Authorities Contacted: N/A Questionairres Past Medical History Past Medical History Have you ever been diagnosed with any of the following: Neurological Problems Seizures: No Cardiology Problems Congestive Heart Failure: No Respiratory Problems Chronic Obstructive Pulmonary Disease (COPD): No Smoking: No Smoking Cessation Counseling: No Smoking Exposure: No Stomache/Intestinal Problems Gastroesophageal Reflux Disease: Yes (takes natural meds) Genital/Urinary Problems Renal Disease: No Musculoskeletal Problems Arthritis: Yes Endocrine Problems Diabetes Mellitus Type 1: No Diabetes Mellitus Type 2: No Other Problems Hospitalization: No Shingles: No Blood Transfusions: No Anesthesia Reactions: No Human Immunodeficiency Virus (HIV): No Chicken Pox: No Measles: No Mumps: No Rubella ([place] Measles): No Pertussis: No Clostridium Difficile: No Cancer: No Subjective Visit Visit for: follow up visit and knee Immunization / Flu Flu Vaccine in the Last 12 Months: No Flu Vaccine Exclusion Criteria: No Exclusion Criteria History of Present Illness Chief complaint: left knee pain Date of 1st surgery (if applicable): 07/28/2025 Patient is 2 weeks from surgery. He is doing well Personal History Red flag PMH: BMI BMI Counceling provided: Yes Additional comments: WALKER WAS GIVEN TO PATIENT Pain Pain level (0-10): 3 Pain duration: ON AND OFF Pain location: anterior Pain quality: aching and tingling Pain timing: night Associated signs & symptoms: stiffness Ambulatory data Ambulatory device: walker Treatments Number of previous injections: 4 Improvement with previous injections: No Improvement with PT: No Improvement with NSAIDS: n/a Review of Systems Review of Systems: All systems negative unless otherwise noted in HPI.
[2025-08-15 14:52] VITALS: BP 143/94; PULSE 81; RESP 18; TEMP 36.3; O2SAT 98; BMI 30.1
== END 2025-08-15 15:01 | disposition home or self-care (01) ==
LOC: HODSRG 14:35
PROVIDERS: PCP Physician Assistant; Referring Provider Physician Assistant; Supervising Provider Orthopaedic Surgery Adult Reconstructive Orthopaedic Surgery; Visit Provider Orthopaedic Surgery Adult Reconstructive Orthopaedic Surgery
DX: Z47.1 Aftercare following joint replacement surgery (principal); Z96.652 Presence of left artificial knee joint; M17.11 Unilateral primary osteoarthritis, right knee
CPT/HCPCS: 99213; G0463

== ENCOUNTER 2025-09-13 13:00 | Outpatient (RCR) | payer MEDICAID, SELFPAY ==
--- NOTE | 2025-08-29 11:35 | PT.OIERPT ---
PT OP Initial Eval Patient Information Outpatient Physical Therapy Treatment Date: 08/29/25 Visit Reasons: tka left Medical Diagnosis: L TKA Treatment Dx #1: L knee pain Treatment Dx #2: Decreased L knee ROM Start of Care: 08/29/25 Date of Onset: 07/28/25 DOS Smoking Status Smoking Status: Never smoker Initial Assessment Subjective: Pt is 54 yr old arabic speaking male s/p L TKA presents ambulating with a SPC. Increased pain with walking, bending the knee and stairs. PMH: none reported Pt goal: to walk without cane and bend the knee Objective: L knee AROM: PROM: ? Flexion: 100 deg 107 deg ? Extension: -7 deg ? SLR: ? 55 deg ? Strength: ? Quads and hamstrings 4-/5 ? Antalgic gait pattern with decreased WB tolerance on L LE ambulating with flexed knee Assessment: Pt presentation consistent with post op L TKA with decreased ROM, strength ? and WB tolerance. Pt lacks a few degrees of knee extension and flexion is limited by ? myofascial limitations and pain.? Pt requires skilled therapy to improve ROM ? and strength and has good rehab potential.? Eval followed by HEP with printout. Short Term and Nursing Home Goals 1.? Ind with HEP 2.? Improved knee ROM to full extension to 115 deg flexion 3.? Improved quad and hamstring strength to 4+/5 4.? Improved ambulatory tolerance to community distances with symmetrical gait pattern Treatment Plan 1. Manual therapy ? 2. Therex ? 3. Modalities as indicated, moist heat, ice, estim Frequency and Duration: 2-3x a week for 18 sessions plus the evaluation Certification Dates: 08/29/25 to 11/27/25 Procedure Charges OP PT Eval Mod Complex 30 minutes: Yes
--- NOTE | 2025-08-30 17:48 | PT.ODAYNRPT ---
PT Outpatient Daily Note OP Daily Note Outpatient Physical Therapy Treatment Date: 08/30/25 Visit Reasons: tka left Subjective: Same as time of evaluation Objective: See F/S for therex MT: PROM into flexion x7' Assessment: Improved PROM into flexion to 110 deg Plan: Continue per POC Length of Time (minutes) of Treatment: 30 Minutes Procedure Charges Therapeutic Exercise 30 minutes: Yes
--- NOTE | 2025-09-04 14:22 | PT.ODAYNRPT ---
PT Outpatient Daily Note OP Daily Note Outpatient Physical Therapy Treatment Date: 09/04/25 Visit Reasons: tka left Subjective: Pt reports L knee is doing ok, still stiff and is not doing HEP as much as he should. Objective: Please see flow sheet for ther ex list. Assessment: Pt educated the importance of performing HEP and encouraged to continue with stretches at home. Plan: Continue with POC. Length of Time (minutes) of Treatment: 30 Minutes Procedure Charges Therapeutic Exercise 30 minutes: Yes
--- NOTE | 2025-09-11 14:06 | PT.ODAYNRPT ---
PT Outpatient Daily Note OP Daily Note Outpatient Physical Therapy Treatment Date: 09/11/25 Visit Reasons: tka left Subjective: Pt reports L knee is ok, c/o some pain and stiffness, pt has not returned to work yet. Objective: Please see flow sheet for ther ex list. Assessment: Cues and demonstration for pt to perform L calf stretch with good technique, avoid compensatory movement. Plan: Continue with POC. Length of Time (minutes) of Treatment: 30 Minutes Procedure Charges Therapeutic Exercise 30 minutes: Yes
--- NOTE | 2025-09-13 14:18 | PT.ODAYNRPT ---
PT Outpatient Daily Note OP Daily Note Outpatient Physical Therapy Treatment Date: 09/13/25 Visit Reasons: tka left Subjective: Pt reports L knee is stiff but notices ROM slowly progressing. Objective: Please see flow sheet for ther ex list. Assessment: Pt educated and instructed on knee flexion interventions and encouraged to perform for home, pt agreed. Plan: Continue with poC. Length of Time (minutes) of Treatment: 30 Minutes Procedure Charges Therapeutic Exercise 30 minutes: Yes
== END 2025-09-13 23:59 | disposition home or self-care (01) ==
LOC: CPTX 13:00
PROVIDERS: PCP Orthopaedic Surgery Adult Reconstructive Orthopaedic Surgery; Referring Provider Orthopaedic Surgery Adult Reconstructive Orthopaedic Surgery; Visit Provider Orthopaedic Surgery Adult Reconstructive Orthopaedic Surgery
DX: Z47.1 Aftercare following joint replacement surgery (principal); Z96.652 Presence of left artificial knee joint; M25.562 Pain in left knee
CPT/HCPCS: 97110; 97162